=== PATIENT | male | born 1960 | race Caucasian/White ===

== ENCOUNTER → 2018-12-02 | Outpatient (CLI) | payer MEDICARE ==
[~2018-12-02] MED LIST: ALLOPURINOL100 MG PO; AMLODIPINE-BEN1 EAC1 PO; ASPIR 8181 MG PO; CLINDAMYCIN 300 MG IV ONE; CLINDAMYCIN 300MG 50 ML IV ONE; FLUOXETINE HCL20 M1 PO; GENTAMICIN 120MG/NS 100ML 0 ML ONE; GENTAMICIN 120MG/NS 100ML 100 ML ONE; OMEPRAZOLE40 MG PO; TRIAMCINOLONE A15 G1 TOP; VITAMIN B6 PO; ZOLPIDEM TARTRA10 MG PO
--- OUTSIDE RECORDS SUMMARY | 2018-12-15 10:56 | XMS REPORT | Clinical Summary ---
Author Author [facility] Organization [facility] Address Unknown Phone Unavailable Care Team Providers Care Barrel Loader And Cleaner Name Role Phone Alexa Dai MD PCP Allergies Not on File Medications Not on file Active Problems Not on file Social History Date Tobacco Use Types Packs/Day Years Used Never Assessed Sex Assigned at Date Recorded Not on file Industry Job Start Date Occupation Not on file Not on file Not on file Travel End Travel History Travel Start No recent travel history available. Last Filed Vital Signs Not on file Plan of Treatment Health Maintenance Due Date Last Done Comments COLONOSCOPY SCREENING 2010 SHINGLES VACCINES (#1) 2010 INFLUENZA VACCINE 02/03/2019 Results Not on fileafter 12/14/2017 Insurance Type Payer Benefit Subscriber ID Effective Phone Address Plan / Dates Group HMO [employer] CIGNA xxxxxxxxxxx 2017-P [employer] resent NG O MCR ADV Advance Directives Patient has advance care planning documents on file. For more information, jocelyn george contact: Heath Bower [address] [place] [address], [place] [address]
--- OUTSIDE RECORDS SUMMARY | 2018-12-16 14:42 | XMS REPORT | Clinical Summary ---
Author Author [facility] Address Unknown Phone Unavailable Care Team Providers Care Brush Polisher Name Role Phone Alexa Dai MD PCP [...] INFLUENZA VACCINE 02/03/2019 Results Not on fileafter 12/15/2017 Insurance Type Payer Benefit Subscriber ID Effective Phone Address Plan / Dates Group HMO [employer] CIGNA xxxxxxxxxxx 2017-P [employer] resent NG O MCR ADV Advance Directives Patient has advance care planning documents on file. For more information, jocelyn george contact: Heath Bower [address] [place] [address], [place] [address]
--- OUTSIDE RECORDS SUMMARY | 2018-12-24 08:19 | XMS REPORT | Clinical Summary ---
Author Author [facility] Organization [facility] Address Unknown Phone Unavailable Care Team Providers Care Flow Match Sofa Cutter Name Role Phone Alexa Dai MD PCP [...] INFLUENZA VACCINE 02/03/2019 Results Not on fileafter 12/23/2017 Insurance Type Payer Benefit Subscriber ID Effective Phone Address Plan / Dates Group HMO [employer] CIGNA xxxxxxxxxxx 2017-P [employer] resent NG O MCR ADV Advance Directives Patient has advance care planning documents on file. For more information, jocelyn george contact: Heath Bower [address] [place] [address], [place] [address]
--- NOTE | 2018-12-24 15:53 | Diagnostic Imaging Report ---
Transrectal ultrasound of the prostate, ultrasound guidance. TECHNIQUE: Sonographic guidance was provided to Dr. Aly Enriquez for the purposes of a transrectal prostate biopsy. HISTORY: Elevated PSA FINDINGS: The seminal vesicles are present and unremarkable. The gland size measures 2.8 x 5.9 x 5.0 cm. The volume is 43.0 cubic cm. The peripheral zone is homogeneous without focal nodules. The transition zone demonstrates no gross abnormalities. IMPRESSION: As above. Signed by: Dr. Des Wynne MD on 12/24/2018 3:50 PM
== END ==
LOC: RAD 05:00 → OR 12-15 09:00 → EDSTATUS 12-24 09:00
PROVIDERS: ATTEND Urology
DX: Z01.818 Encounter for other preprocedural examination (principal); R97.20 Elevated prostate specific antigen [PSA]; Z53.8 Procedure and treatment not carried out for other reasons
CPT/HCPCS: 93005; J1580

== ENCOUNTER → 2018-12-24 | Day surgery (SDC) | payer MEDICARE ==
[~2018-12-24] MED LIST changes: -CLINDAMYCIN 300 MG IV ONE; -CLINDAMYCIN 300MG 50 ML IV ONE; +FENTANYL CITRATE/PF 100MCG/2 ML INJ ONE; -GENTAMICIN 120MG/NS 100ML 0 ML ONE; -GENTAMICIN 120MG/NS 100ML 100 ML ONE; +LIDOCAINE HCL 2% LOCAL INJ 5 ML SDV VIAL INJ ONE; +MIDAZOLAM HCL 2 MG/2 ML VIAL ONE; +PROPOFOL IV EMULSION 10 MG/ML 20 ML VIAL ONE
[2018-12-24 09:25] VITALS: BP 141/52
--- OUTSIDE RECORDS SUMMARY | 2018-12-24 09:38 | XMS REPORT | Clinical Summary ---
Author Author [facility] Address Unknown Phone Unavailable Care Team Providers Care Fisher Swordfish Name Role Phone Alexa Dai MD PCP [...] more information, jocelyn george contact: Heath Bower [address] [place] [address], [place] [address]
--- NOTE | 2019-02-03 11:23 | Operative Report ---
DATE OF PROCEDURE: 12/24/2018 SURGEON: Aly Enriquez MD PREOPERATIVE DIAGNOSIS: Elevated PSA of 5.5. POSTOPERATIVE DIAGNOSIS: Elevated PSA of 5.5. PROCEDURES: 1. Prostate ultrasound. 2. Ultrasound guidance for needle biopsy. 3. Needle biopsy of prostate. ANESTHESIA: General. ESTIMATED BLOOD LOSS: Minimal. COMPLICATIONS: None. INDICATIONS FOR PROCEDURE: Julio is a very pleasant 58-year-old male with a history of repeatedly elevated PSA. He and I had a long discussion about alternatives, risks and benefits of doing nothing, and prostate ultrasound biopsy with the family history. The patient elects to proceed with prostate ultrasound biopsy versus the options, alternatives, the risks and benefits and elected to proceed. PROCEDURE IN DETAIL: After informed consent was obtained, the patient was taken to the operative suite. He was placed supine on the operating table. He underwent general anesthesia by Anesthesia service. He was placed in the left lateral decubitus position. Prostate ultrasound: Utilizing a plethora of lubrication, the transrectal ultrasound probe was inserted rectally atraumatically. Prostate ultrasound was performed revealing a volume of 43.02 mL, normal-appearing seminal vesicles, some scattered hypoechoic areas mostly to the mid region. IMPRESSION: 1. Benign prostatic hyperplasia. Otherwise, normal ultrasound of the prostate. 2. Ultrasound guidance: The news technical director from Department of Radiology was present and utilized the ultrasound probe to guide the renal prostate biopsies. 3. Needle biopsy of prostate: A 10-core approach to the prostate biopsy was performed with minimal bleeding. The patient tolerated the procedure well, was transferred to the recovery room in excellent condition with no untoward effects noted. Aly Enriquez MD ES/MODL /[id number]
== END | disposition home or self-care (01) ==
LOC: OR 09:35
PROVIDERS: ATTEND Urology
DX: C61 Malignant neoplasm of prostate (principal); N40.0 Benign prostatic hyperplasia without lower urinary tract symptoms; H91.90 Unspecified hearing loss, unspecified ear; I10 Essential (primary) hypertension; K21.9 Gastro-esophageal reflux disease without esophagitis; F41.9 Anxiety disorder, unspecified; F32.9 Major depressive disorder, single episode, unspecified; Z79.82 Long term (current) use of aspirin
CPT/HCPCS: 55700; 76872; 88305; J2001; J2250; J2704; J3010